=== PATIENT | male | born 1955 | race Caucasian/White ===

== ENCOUNTER 2018-11-24 22:49 | Emergency (ER) | payer MEDICARE ==
[2018-11-24 23:20] LABS: ABSOLUTE EOSINOPHILS # (AUTO) 0.3 10^3/uL (0.0-0.6); ABSOLUTE LYMPHOCYTES (AUTO) 1.6 10^3/uL (0.5-4.7); ABSOLUTE MONOCYTES (AUTO) 0.2 10^3/uL (0.1-1.4); ABSOLUTE NEUT (AUTO) 4.5 10^3/uL (1.7-8.2); BASOPHILS % (AUTO) 0.7 % (0-2); EOSINOPHILS % (AUTO) 4.4 % (0-6); HEMATOCRIT 41.2 % (37.9-51.0); HEMOGLOBIN 13.5 g/dL (13.5-17.0); LYMPHOCYTES % (AUTO) 23.9 % (13-45); MEAN CORPUSCULAR HGB CONC 32.8 g/dL (32.0-36.0); MEAN CORPUSCULAR VOLUME 88 fl (80-97); MONOCYTES % (AUTO) 3.6 % (3-13); PLATELET COUNT 140 10^3/uL (150-450); RED BLOOD COUNT 4.66 10^6/uL (4.35-5.55); RED CELL DISTRIBUTION WIDTH 13.8 % (11.5-14.0); SEGMENTED NEUTROPHILS % (AUTO) 67.4 % (42-78); TOTAL CELLS COUNTED % (AUTO) 100 %; WHITE BLOOD COUNT 6.7 10^3/uL (4.0-10.5)
[2018-11-24 23:32] LABS: ALANINE AMINOTRANSFERASE 19 U/L (21-72); ALBUMIN 4.1 g/dL (3.5-5.0); ALKALINE PHOSPHATASE 51 U/L (38-126); ANION GAP 9 (5-19); ASPARTATE AMINO TRANSFERASE 28 U/L (17-59); BILIRUBIN,DIRECT 0.2 mg/dL (0.0-0.4); BILIRUBIN,TOTAL 0.2 mg/dL (0.2-1.3); BLOOD UREA NITROGEN 23 mg/dL (7-20); CALCIUM 8.8 mg/dL (8.4-10.2); CARBON DIOXIDE 30 mmol/L (22-30); CHLORIDE 100 mmol/L (98-107); GLUCOSE 146 mg/dL (75-110); POTASSIUM 4.7 mmol/L (3.6-5.0); SALICYLATE 4.3 mg/dL (2.0-20.0); SODIUM 138.7 mmol/L (137-145); TOTAL PROTEIN 6.6 g/dL (6.3-8.2)
[2018-11-24 23:39] LABS: ACETAMINOPHEN < 10 ug/mL (10-30); ALCOHOL < 10 mg/dL (NONE DETECTED)
[2018-11-25 04:50] LABS: APPEARANCE,URINE CLEAR; BILIRUBIN,URINE NEGATIVE (NEGATIVE); COLOR,URINE YELLOW; GLUCOSE, URINE 50 mg/dL (NEGATIVE); KETONES,URINE NEGATIVE (NEGATIVE); LEUKOCYTE ESTERASE,URINE NEGATIVE (NEGATIVE); NITRITE,URINE NEGATIVE (NEGATIVE); PROTEIN,URINE NEGATIVE (NEGATIVE); UROBILINOGEN,URINE NEGATIVE mg/dL (<2.0)
[2018-11-25 05:06] LABS: URINE AMPHETAMINES SCREEN NEGATIVE; URINE BARBITURATES SCREEN NEGATIVE; URINE BENZODIAZEPINES SCREEN UNCONFIRMED POSITIVE; URINE COCAINE SCREEN UNCONFIRMED POSITIVE; URINE METHADONE SCREEN UNCONFIRMED POSITIVE; URINE PHENCYCLIDINE SCREEN NEGATIVE
[2018-11-25 05:14] LABS: URINE MARIJUANA (THC) SCREEN UNCONFIRMED POSITIVE
--- NOTE | 2018-11-25 06:44 | ER Document Report ---
ED General - General TRAVEL OUTSIDE OF THE [place] IN LAST 30 DAYS: No <BAIRON ANTONY - Last Filed: 11/25/18 06:45> <AILYN WYNN - Last Filed: 11/25/18 10:38> <JUAN BELLE - Last Filed: 11/25/18 10:48> - General Chief Complaint: Overdose Stated Complaint: POSSIBLE OVERDOSE Time Seen by Provider: 11/24/18 23:05 Primary Care Provider: [facility] [Outside] - Follow up in 3-5 days [facility] [Outside] - Follow up as needed PEACE NICHOLSON MD [Primary Care Provider] - Follow up as needed Notes: Patient is a 63-year-old male who presents with complaint of overdose. He was found unresponsive in his house. Paramedics gave Narcan he did wake up. Patient has a history of substance abuse. Patient's and family told par amedics that she is concerned that he is very depressed and potentially suicidal. Patient says he does not use drugs every day but goes in spurts where he will have a relapse and will use drugs for a few days. He admits to using heroin. He also admits to using oxycodone. Denies recent fevers or infections. He says that he does have some depression but denies being suicidal denies that he is try to hurt himself. No other complaints at this time. (BAIRON ANTONY) - Related Data Allergies/Adverse Reactions: duloxetine HCl [From Cymbalta] Adverse Reaction (Mild, Verified 07/18/13 10:47) "DOESNT LIKE THE WAY IT MAKES HIM FEEL" gabapentin [Gabapentin] Adverse Reaction (Mild, Verified 07/18/13 10:47) "DOESNT LIKE THE WAY IT MAKES HIM FEEL" pregabalin [Pregabalin] Adverse Reaction (Mild, Verified 07/18/13 10:47) "DOESNT LIKE THE WAY IT MAKES HIM FEEL" Past Medical History - Social History Smoking Status: Current Every Day Smoker Frequency of alcohol use: Occasional Drug Abuse: Heroin, Marijuana, Prescription drugs Family History: None Patient has suicidal ideation: No Patient has homicidal ideation: No - Past Medical History Cardiac Medical History: Denies: Hx Coronary Artery Disease, Hx Heart Attack, Hx Hypertension Pulmonary Medical History: Denies: Hx Asthma, Hx Bronchitis, Hx COPD, Hx Pneumonia Neurological Medical History: Denies: Hx Cerebrovascular Accident, Hx Seizures Renal/ Medical History: Denies: Hx Peritoneal Dialysis Musculoskeletal Medical History: Reports Hx Arthritis - generalized Psychiatric Medical History: Reports: Hx Anxiety, Hx Depression Past Surgical History: Reports: Hx Orthopedic Surgery - spinal fusion. Denies: Hx Pacemaker - Immunizations Hx Diphtheria, Pertussis, Tetanus Vaccination: Yes - 2010 <BAIRON ANTONY - Last Filed: 11/25/18 06:45> Review of Systems <BAIRON ANTONY - Last Filed: 11/25/18 06:45> - Review of Systems Notes: My Normal Review Basic REVIEW OF SYSTEMS: CONSTITUTIONAL : Denies fever, chills, or sweats. Denies recent illness. CARDIOVASCULAR: Denies chest pain. RESPIRATORY: Denies cough, cold, or chest congestion. Denies shortness of breath, difficulty breathing, or wheezing. GASTROINTESTINAL: Denies abdominal pain. Denies nausea, vomiting, or diarrhea. MUSCULOSKELETAL: Denies neck or back pain or joint pain or swelling. SKIN: Denies rash or skin lesions. NEUROLOGICAL: Found unresponsive. Denies headache. Denies weakness or paralysis or loss of use of either side. Denies problems with gait or speech. Denies sensory or motor loss. PSYCHIATRIC: Depression ALL OTHER SYSTEMS REVIEWED AND NEGATIVE. (BAIRON ANTONY) Physical Exam <BAIRON ANTONY - Last Filed: 11/25/18 06:45> - Vital signs Vitals: Resp BP Pulse Ox 10 L 104/66 96 11/24/18 23:34 11/24/18 23:34 11/24/18 23:34 - Notes Notes: General Appearance: Well nourished, alert, cooperative, no acute distress, no obvious discomfort. Vitals: reviewed, See vital signs table. Head: no swelling or tenderness to the head Eyes: PERRL, EOMI, Conjuctiva clear Mouth: No decreasd moisture Lungs: No wheezing, No rales, No rhonci, No accessory muscle use, good air exchange bilaterally. Heart: Normal rate, Regular rythm, No murmur, no rub Abdomen: Normal BS, soft, No rigidity, No abdominal tenderness, No guarding, no rebound, no abdominal masses, no organomegaly Extremities: strength 5/5 in all extremities, good pulses in all extremities, some track noriega on upper extremities. Skin: warm, dry, appropriate color, no rash Neuro: speech clear, oriented x 3, normal affect, responds appropriately to questions. He was all extremities on his own. Symmetric facial movement. No neuro deficits on exam. (BAIRON ANTONY) Course - Laboratory Result Diagrams: 11/24/18 23:07 11/24/18 23:07 <BAIRON ANTONY - Last Filed: 11/25/18 06:45> - Laboratory Result Diagrams: 11/24/18 23:07 11/24/18 23:07 <AILYN WYNN - Last Filed: 11/25/18 10:38> - Laboratory Result Diagrams: 11/24/18 23:07 11/24/18 23:07 <JUAN BELLE - Last Filed: 11/25/18 10:48> - Re-evaluation Re-evalutation: 11/25/18 06:44 Patient's drug screen came back positive for multiple substances. Feel the patient has medically stable for psychiatric evaluation. His did mention paramedics that she is concerned about his depression and potential that he could be suicidal. Patient seems very straightforward and says that he is not suicidal but does admit to having some depression. He said he is willing to speak with psychiatry and mental health this morning about his substance abuse as well as depression. Patient has no further concerns at this time and has done well and has been vitally stable. Dictation of this chart was performed using voice recognition software; therefore, there may be some unintended grammatical errors. (BAIRON ANTONY) - Vital Signs Vital signs: Temp Pulse Resp BP Pulse Ox 11 L 116/72 99 11/25/18 09:01 11/25/18 09:01 11/25/18 09:01 - Laboratory Laboratory results interpreted by ms: 11/24/18 11/24/18 11/25/18 23:07 23:07 04:25 Plt Count 140 L BUN 23 H Glucose 146 H ALT 19 L Urine Glucose (UA) 50 H Acetaminophen < 10 L Discharge <BAIRON ANTONY - Last Filed: 11/25/18 06:45> <AILYN WYNN - Last Filed: 11/25/18 10:38> <JUAN BELLE - Last Filed: 11/25/18 10:48> - Discharge Clinical Impression: Substance abuse Depression Qualifiers: Depression Type: unspecified Qualified Code(s): F32.9 - Major depressive disorder, single episode, unspecified Condition: Stable Disposition: HOME, SELF-CARE Additional Instructions: You have been evaluated both medical and behavioral health teams and been deemed appropriate for discharge. You are highly encouraged to follow-up with substance abuse treatment. You have been been provided resources for both detox and follow-up with substance abuse treatment to include detox facilities, residential, and outpatient providers this includes mobile crisis contact information. You are also encouraged to engage in therapeutic services to address your complex bereavement from your son's . COCAINE ABUSE: Cocaine causes many dangerous medical problems. Problems can occur even with "usual" amounts. Cocaine affects judgement, creating a sense of invulnerability. Cocaine users often make bad decisions that seem "great" at the time. Most cocaine users eventually will be hurt by bad job performance, da aidee personal relations, crime, and unsafe sexual practices. Toxic effects of cocaine can include seizures, hallucinations, delusions, high blood pressure, heart damage, or sudden . There's always the risk of a "bad batch." But heart attacks, brain hemorrhages, or cardiac arrest can occ ur unpredictably even with "normal" use. Injection of cocaine is risky for abscesses, endocarditis (heart infection), pneumonia, and AIDS. Withdrawal from cocaine often causes anxiety and drug cravings. Some users become paranoid and psychotic. Many treatment programs are available, but you must make the decision to quit. Medication can be prescribed to control the symptoms of cocaine toxicity (beta blockers or benzodiazepines). Withdrawal symptoms may require tranquilizers. NARCOTIC / OPIOD ABUSE: Narcotics and opiods are pain-relieving drugs that are often abused. They are addicting. Narcotics cause euphoria, but it often takes increasing amounts to "feel good" and avoid withdrawal symptoms. Overdose of narcotics causes small pupils, coma, and decreased breathing. It's a common cause of . Purity of street narcotics is unpredictable. Injection of narcotics is risky for abscesses, endocarditis (heart infection), pneumonia, and AIDS. Withdrawal from narcotics causes goose bumps, watery mouth, sweating, nasal congestion, muscle aches, abdominal cramps, vomiting, and diarrhea. There's often restlessness and confusion. Treatment programs are available, but you must make the decision to quit. Medication (such as clonidine) can be prescribed to control the symptoms of withdrawal. OVERDOSE / INGESTION: You have taken more medication than you should have. After your evaluation and care, it is felt that your overdose is not likely to be harmful or of any significant consequences to you and you are being discharged. In the future, you should be careful not to take more medications than what is prescribed for you. Although your overdose does not seem to be of any danger to you at this time, if you develop any unusual or unexpected symptoms after your discharge, you should return to the Emergency Department immediately for re-evaluation. INSTRUCTIONS FOR HOME CARE FOLLOWING DRUG OVERDOSAGE: The doctor feels it's safe for you to go home. You will need to be observed. If charcoal and a laxative was given to you, expect some loose black stools soon. Take no medications unless approved by a physician, including alcohol. If drowsy, lie on your stomach or side for sleeping to avoid aspiration if vomiting occurs. Take only liquids by mouth until there is no more nausea. FOR THE OBSERVER: Observe the patient for the next 24 hours and call or go to the hospital if any of the following are noted: prolonged or repeated vomiting, difficulty in arousing, convulsions (seizures or fits), fever, persistent cough, breathing that is too slow or too rapid, or confused or bizarre behavior. If a counselling visit has been arranged, make sure the patient attends. Call the physician or poison control if you have questions. FOLLOW-UP CARE: If you have been referred to a physician for follow-up care, call the physicians office for an appointment as you were instructed or within the next two days. If you experience worsening or a significant change in your symptoms, notify the physician immediately or return to the Emergency Department at any time for re-evaluation. Referrals: PEACE NICHOLSON MD [Primary Care Provider] - Follow up as needed [facility] [Outside] - Follow up as needed [facility] [Outside] - Follow up in 3-5 days
[2018-11-25 09:24] VITALS: BP 116/72
--- NOTE | 2018-11-25 09:41 | ER Document Report ---
Doctor's Note Notes: 11/25/18 09:39 Rounds: Chart reviewed and patient reviewed. Patient with polysubstance abuse. Has been using heroin, oxycodone, and marijuana and cocaine. Had to receive Narcan to awaken him at the scene last evening. Patient says he is not suicidal. Says he does not use drugs regularly, just happened to be around some yesterday. No other significant past history provided. Vital signs are all normal. Labs were positive for benzos, cocaine, marijuana, methamphetamine, and opioids. Patient appears to be medically stable for transfer or discharge. Jacqueline Baum MD
--- NOTE | 2018-11-25 11:27 | PSYCHOLOGICAL NOTE ---
Psych Note - Psych Note Date seen by psych provider: 11/25/18 Time seen by psych provider: 09:10 Psych Note: Reason for consult: Substance abuse Consent permissions: Patient's Patient is a 63-year-old male who presents with complaint of overdose. He was found unresponsive in his house. Paramedics gave Narcan he did wake up. Patient states that he excellently overdosed because he "used too many drugs." He adamantly denies intentional overdose. He identifies using drugs as a way to escape and he enjoys the feeling of being high. He does identify wanting sobriety however has declined assistance stating that "I can do it on my own." Clinician provided psychoeducation in substance abuse and achieving successful sobriety. Patient also openly engaged in his thoughts about his son's (patient and clinician discussed patient's son during previous visit in 2016), with ongoing depression. Clinician discussed importance of therapeutic services to address his symptoms of his complex bereavement. Chart Review conducted: Patient was seen by this clinician and behavioral health team in April of 2016 for substance abuse and depression in connection to his son's . Clinician spoke with [facility]ed[facility], Cornelio Hernandez. He reports that the patient's stated the patient makes suicidal comments frequently and that he hopes he will . Clinician attempted to contact patient's ; unsuccessful. Patient is alert and oriented to person, place, time and circumstance. Patient adamantly denies suicidal and homicidal ideation however reports indicate frequent passive suicidal ideation comments. Mood is overall euthymic however has flat affect. Patient is currently experiencing withdrawal symptoms which includes nausea and vomiting. Patient identifies using drugs as a way to escape and he enjoys getting high. Delusions are absent behaviors congruent with an intact reality based presentation i.e. organized linear thought process. Eye contact was well-maintained. Conversational speech is within normal rate, tone and prosody. Intellectual abilities appear to be within the average range. Attention and concentration are currently good. Insight, judgment, impulse control are historically poor due to polysubstance abuse. Polysubstance abuse Complex bereavement No medication recommendations at this time Impression/Plan: Patient is cleared from acute psychiatric services. There is a report that the patient makes frequent suicidal comments however patient adamantly denies suicidal homicidal ideation. Patient admits to accidental overdosed using illegal substances. Patient has a long history of substance abuse and openly discusses that he uses drugs as a way to escape and that he enjoys the feeling of being high. Patient's son approximately 6 years ago from a drug overdose. Patient engaged appropriately in this discussion and demonstrates complex bereavement as he attempted to perform CPR on his son and he personally continues to use even after his son's . Patient has declined assistance in detox and sobriety services. Clinician conducted psychoeducation on substance abuse and achieving sobriety successfully in addition to the importance of therapeutic services to address his symptoms of his complex bereavement. These resources have been provided if the patient changes his mind, this includes detox facilities, [facility] addiction [facility] pamphlet and contact information, outpatient mental health and substance abuse providers for the local area and mobile crisis contact information. Dr. Rajput was consulted on this patient; attending physician is in agreement of recommendations and disposition.
--- NOTE | 2018-11-25 18:31 | EKG REPORT ---
SEVERITY:- ABNORMAL ECG - SINUS RHYTHM PROBABLE ANTEROSEPTAL INFARCT, AGE INDETERM : Confirmed by: Jenny Sherman 25-Nov-2018 18:30:57
== END 2018-11-25 11:00 | disposition home or self-care (01) ==
LOC: ER 22:49
DX: F19.10 Other psychoactive substance abuse, uncomplicated (principal); F32.9 Major depressive disorder, single episode, unspecified; F17.200 Nicotine dependence, unspecified, uncomplicated
CPT/HCPCS: 36415; 80053; 80307; 81001; 85025; 93005; 93010; 99285

== ENCOUNTER 2018-11-25 16:42 | Emergency (ER) | payer MEDICARE ==
--- NOTE | 2018-11-25 17:39 | ER Document Report ---
ED Psych Disorder / Suicide - General Chief Complaint: Overdose Stated Complaint: POSSIBLE OVERDOSE Time Seen by Provider: 11/25/18 17:19 Primary Care Provider: PEACE NICHOLSON MD [Primary Care Provider] - Follow up as needed Notes: Patient brought in by EMS for apparently having overdosed on narcotic/heroin again, requiring Narcan to awaken him from sleep. He was just here last night after having received Narcan to awaken him from sleep and was observed here during the day and just discharged home about 4 hours ago. At that time, he was positive for methamphetamine, cocaine, heroin, and I think marijuana and something else. Patient initially says he did not know what happened but then acknowledges that he was using heroin again. Patient has depression, but had denied feeling suicidal when evaluated on his earlier visit today. Patient's son from an overdose as the patient was performing CPR on him. This happened 5 or 6 years ago. TRAVEL OUTSIDE OF THE [place] IN LAST 30 DAYS: No - Related Data Allergies/Adverse Reactions: duloxetine HCl [From Cymbalta] Adverse Reaction (Mild, Verified 07/18/13 10:47) "DOESNT LIKE THE WAY IT MAKES HIM FEEL" gabapentin [Gabapentin] Adverse Reaction (Mild, Verified 07/18/13 10:47) "DOESNT LIKE THE WAY IT MAKES HIM FEEL" pregabalin [Pregabalin] Adverse Reaction (Mild, Verified 07/18/13 10:47) "DOESNT LIKE THE WAY IT MAKES HIM FEEL" Past Medical History - Social History Smoking Status: Unknown if Ever Smoked Family History: None, Reviewed & Not Pertinent Musculoskeletal Medical History: Reports Hx Arthritis - generalized Psychiatric Medical History: Reports: Hx Anxiety, Hx Depression Past Surgical History: Reports: Hx Orthopedic Surgery - spinal fusion - Immunizations Hx Diphtheria, Pertussis, Tetanus Vaccination: Yes - 2010 Review of Systems - Review of Systems Notes: CONSTITUTIONAL : Denies fever. CARDIOVASCULAR: Denies chest pain. RESPIRATORY: Denies cough, chest congestion, or shortness of breath. GASTROINTESTINAL: Denies abdominal pain or nausea, vomiting, or diarrhea. GENITOURINARY: Denies difficulty or painful urinating, urinary frequency, blood in urine. Physical Exam - Vital signs Vitals: Resp 20 11/25/18 16:51 PHYSICAL EXAMINATION: GENERAL: Well-appearing, no acute distress. HEAD: Atraumatic, normocephalic. NECK: Normal range of motion, supple. LUNGS: Breath sounds clear and equal bilaterally. HEART: Regular rate and rhythm without murmurs heard. ABDOMEN: Soft, nontender. No guarding or rebound or masses felt. Course - Re-evaluation Re-evalutation: 11/25/18 17:43 IVC paperwork has been completed. Patient will be spending the night here tonight and reassess by mental health in the morning. - Vital Signs Vital signs: Temp Pulse Resp BP Pulse Ox 98.6 F 98 16 116/79 94 11/26/18 07:00 11/26/18 07:00 11/26/18 04:00 11/26/18 07:00 11/26/18 04:00 Discharge - Discharge Clinical Impression: Depression, Substance abuse, Suicidal ideation Condition: Stable Disposition: PSYCH HOSP/UNIT Referrals: PEACE NICHOLSON MD [Primary Care Provider] - Follow up as needed
[2018-11-26 09:44] VITALS: BP 116/79
--- NOTE | 2018-11-26 19:17 | PSYCHOLOGICAL NOTE ---
Psych Note - Psych Note Date seen by psych provider: 11/26/18 Psych Note: Presenting Problem: IVC, 2 OD in one day with need for medical attention, Bereavement related to son who 6 years ago, concern for SI. Today he stated he may need help, became tearful when talking about his son and did not deny either OD. He did not say one way or the other if it was intentional or not. Diagnosis: OD Polysubstance abuse Opioids/Methadone Anxiolytics Cocaine Cannabis Complex Bereavement Impression/Plan: Started placement efforts prior to patient being seen given 2 OD in one day which required medical attention. Patient accepted to [facility]. Will move forward with that placement. Consulted with Dr. Rajput regarding the management and care of patient. ED Physician in agreement with recommendations.
== END 2018-11-26 10:10 ==
LOC: ER 16:42
DX: R45.851 Suicidal ideations (principal); F32.9 Major depressive disorder, single episode, unspecified; F19.10 Other psychoactive substance abuse, uncomplicated
CPT/HCPCS: 99284

== ENCOUNTER → 2019-03-17 | Outpatient (CLI) | payer MEDICARE, OTHER ==
--- NOTE | 2019-03-17 14:33 | RADIOLOGY REPORT (SQ) ---
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 NUMBER OF VIEWS: Four views TECHNIQUE: AP views obtained. Lateral and swimmer's lateral views were obtained. LIMITATIONS: None. FINDINGS: MINERALIZATION: Normal. ALIGNMENT: Anatomic. VERTEBRAE: Vertebral bodies of normal height. DISCS: There is mild disc narrowing at C5-6 and C6-7 with small marginal osteophytes. HARDWARE: Anterior plate from C3-C5 with screws into the vertebral bodies. Disc implants. SOFT TISSUES: No masses or calcifications. Lung apices clear. OTHER: No other significant finding. IMPRESSION: Prior ACDF. Mild degenerative disc disease and spondylosis. TECHNICAL DOCUMENTATION: JOB ID: [id number] [employer]- All Rights Reserved Reading location - IP/workstation name: [email or web address]
== END ==
LOC: OD 12:43
PROVIDERS: ATTEND Physician Assistant
DX: M47.12 Other spondylosis with myelopathy, cervical region (principal); M50.023 Cervical disc disorder at C6-C7 level with myelopathy
CPT/HCPCS: 72040

== ENCOUNTER 2019-07-17 11:47 | Emergency (ER) | payer MEDICARE, OTHER ==
--- NOTE | 2019-07-17 12:37 | ER Document Report ---
HPI - HPI Patient complains to provider of: Ear pain Time Seen by Provider: 07/17/19 12:11 Onset: Other - 3 months Onset/Duration: Worse Quality of pain: Achy Pain Level: 3 Context: Patient reports bilateral ear pain for the past 2 to 3 months that worsened recently. Patient reports decreased hearing to the right ear. Patient does report drainage to the ears. No fever. Associated Symptoms: Earache. denies: Nonproductive cough, Productive cough, Fever Exacerbated by: Denies Relieved by: Denies Similar symptoms previously: No Recently seen / treated by doctor: No - ROS ROS below otherwise negative: Yes Systems Reviewed and Negative: Yes All other systems reviewed and negative - CONSTITUTIONAL Constitutional: DENIES: Fever, Chills - EENT EENT: REPORTS: Ear Pain. DENIES: Congestion - RESPIRATORY Respiratory: DENIES: Coughing - GASTROINTESTINAL Gastrointestinal: DENIES: Patient vomiting - DERM Skin Color: Normal Skin Problems: None Past Medical History - General Information source: Patient - Social History Smoking Status: Current Every Day Smoker Frequency of alcohol use: None Drug Abuse: None Occupation: None Family History: None, Reviewed & Not Pertinent Patient has suicidal ideation: No Patient has homicidal ideation: No - Past Medical History Cardiac Medical History: Reports: Hx Hypertension Neurological Medical History: Denies: Hx Cerebrovascular Accident, Hx Seizures Renal/ Medical History: Denies: Hx Peritoneal Dialysis Musculoskeletal Medical History: Reports Hx Arthritis - generalized Psychiatric Medical History: Reports: Hx Anxiety, Hx Depression Past Surgical History: Reports: Hx Orthopedic Surgery - spinal fusion - Immunizations Hx Diphtheria, Pertussis, Tetanus Vaccination: Yes - 2010 Vertical Provider Document - CONSTITUTIONAL Agree With Documented VS: Yes Exam Limitations: No Limitations General Appearance: WD/WN, No Apparent Distress - INFECTION CONTROL TRAVEL OUTSIDE OF THE [place] IN LAST 30 DAYS: No - HEENT HEENT: Atraumatic, Normocephalic Notes: Exudate and drainage to bilateral ear canals, left worse than right, no mastoid tenderness or swelling. Patient does have tenderness with movement of helix - NECK Neck: Normal Inspection, Supple. negative: Lymphadenopathy-Left, Lymphadenopat hy-Right - RESPIRATORY Respiratory: No Respiratory Distress - CARDIOVASCULAR Cardiovascular: Regular Rate - MUSCULOSKELETAL/EXTREMETIES Musculoskeletal/Extremeties: MAEW, FROM - NEURO Level of Consciousness: Awake, Alert, Appropriate Motor/Sensory: No Motor Deficit - DERM Integumentary: Warm, Dry Course - Vital Signs Vital signs: Temp Pulse Resp BP Pulse Ox 98.2 F 104 H 18 151/88 H 100 07/17/19 11:52 07/17/19 11:52 07/17/19 11:52 07/17/19 11:52 07/17/19 11:52 Discharge - Discharge Clinical Impression: Otalgia Qualifiers: Laterality: bilateral Qualified Code(s): H92.03 - Otalgia, bilateral Otitis externa Qualifiers: Otitis externa type: unspecified type Chronicity: unspecified Laterality: bilateral Qualified Code(s): H60.93 - Unspecified otitis externa, bilateral Condition: Stable Disposition: HOME, SELF-CARE Instructions: Otitis Externa ([facility]), Use of Ear Drops ([facility]) Additional Instructions: Return immediately for any new or worsening symptoms Followup with your primary care provider, call tomorrow to make a followup appointment Follow-up with the research neuropsychologist for a recheck Prescriptions: Ciprofloxacin HCl/Dexameth [Ciprodex Otic Suspension 7.5 Ml Drp Bottle] 4 drop BTH_EAR BID #1 bottle Referrals: PEACE NICHOLSON MD [Primary Care Provider] - Follow up as needed [facility] [Provider Group] - Follow up as needed
[2019-07-17 13:15] VITALS: BP 125/76
== END 2019-07-17 13:13 | disposition home or self-care (01) ==
LOC: ER 11:47
DX: H60.93 Unspecified otitis externa, bilateral (principal); H92.03 Otalgia, bilateral; F17.200 Nicotine dependence, unspecified, uncomplicated; I10 Essential (primary) hypertension
CPT/HCPCS: 99282

== ENCOUNTER 2019-10-31 17:14 | Emergency (ER) | payer MEDICARE, OTHER ==
--- NOTE | 2019-10-31 17:35 | ER Document Report ---
ED General - General Chief Complaint: Possible Overdose Stated Complaint: POSSIBLE OVERDOSE Time Seen by Provider: 10/31/19 17:20 Primary Care Provider: PEACE NICHOLSON MD [Primary Care Provider] - Follow up as needed Notes: Presents with unintentional heroin overdose. Snorted heroin more than usual does not use it that often he does not shoot it. Agonal, given 4 mg Narcan by family and was coming around when EMS got there. For that an hour ago. He now feels well. No shortness of breath bleeding or chest pressure. No SI no HI TRAVEL OUTSIDE OF THE [place] IN LAST 30 DAYS: No - Related Data Allergies/Adverse Reactions: duloxetine HCl [From Cymbalta] Adverse Reaction (Mild, Verified 07/18/13 10:47) "DOESNT LIKE THE WAY IT MAKES HIM FEEL" gabapentin [Gabapentin] Adverse Reaction (Mild, Verified 07/18/13 10:47) "DOESNT LIKE THE WAY IT MAKES HIM FEEL" pregabalin [Pregabalin] Adverse Reaction (Mild, Verified 07/18/13 10:47) "DOESNT LIKE THE WAY IT MAKES HIM FEEL" Past Medical History - General Information source: Patient - Social History Smoking Status: Current Every Day Smoker Family History: None, Reviewed & Not Pertinent - Past Medical History Cardiac Medical History: Reports: Hx Hypertension Neurological Medical History: Denies: Hx Cerebrovascular Accident, Hx Seizures Renal/ Medical History: Denies: Hx Peritoneal Dialysis Musculoskeletal Medical History: Reports Hx Arthritis - generalized Psychiatric Medical History: Reports: Hx Anxiety, Hx Depression Past Surgical History: Reports: Hx Orthopedic Surgery - spinal fusion - Immunizations Hx Diphtheria, Pertussis, Tetanus Vaccination: Yes - 2010 Review of Systems - Review of Systems Notes: REVIEW OF SYSTEMS GEN: Denies fever, chills, weight loss ENT: Denies sore throat, nasal discharge, ear pain EYES: Denies blurry vision, eye pain, discharge CV: Denies chest pain, palpitations, edema RESP: Denies cough, shortness of breath, wheezing GI: Denies abdominal pain, nausea, vomiting, diarrhea MSK: Denies joint pain/swelling, edema, SKIN: Denies rash, skin lesions LYMPH: Denies swollen glands/lymph nodes NEURO: Denies headache, focal weakness or numbness, dizziness PSYCH: Denies depression, suicidal or homicidal ideation PHYSICAL EXAMINATION General: No acute distress, well-nourished Head: Atraumatic, normocephalic ENT: Mouth normal, oropharynx moist, no exudates or tonsillar enlargement Eyes: Conjunctiva normal, pupils equal, lids normal Neck: No JVD, supple, no guarding CVS: Normal rate, regular rhythm, no murmurs Resp: No resp distress, equal and normal breath sounds bilaterally GI: Nondistended, soft, no tenderness to palpation, no rebound or guarding Ext: No deformities, no edema, normal range of motion in upper and lower ext Back: No CVA or midline TTP Skin: No rash, warm Lymphatic: No lymphadeopathy noted Neuro: Awake, alert. Face symmetric. GCS 15. Course - Re-evaluation Re-evalutation: 10/31/19 17:34 Uncomplicated unintentional heroin overdose Will observe for 1 hour post Narcan No SI no HI Narcan is been given to him by EMS already Does not want to stop using does not think he has a problem Outpatient referrals given I have discussed with the patient there likely diagnosis, aftercare plan, follow-up plans and my usual and customary return precautions. They verbalized understanding of this. Discharge - Discharge Clinical Impression: Accidental heroin overdose Qualifiers: Encounter type: initial encounter Qualified Code(s): T40.1X1A - Poisoning by heroin, accidental (unintentional), initial encounter Condition: Good Disposition: HOME, SELF-CARE Instructions: Overdose ([facility]) Referrals: PEACE NICHOLSON MD [Primary Care Provider] - Follow up as needed
[2019-10-31 19:10] VITALS: BP 112/78
== END 2019-10-31 19:16 | disposition home or self-care (01) ==
LOC: ER 17:14
DX: T40.1X1A Poisoning by heroin, accidental (unintentional), initial encounter (principal); F17.200 Nicotine dependence, unspecified, uncomplicated; I10 Essential (primary) hypertension
CPT/HCPCS: 99284

== ENCOUNTER → 2020-03-16 | Outpatient (CLI) | payer MEDICARE, OTHER ==
[2020-03-16 11:59] VITALS: BP 105/59
--- NOTE | 2020-03-16 11:59 | ER RDC ASSESSMENT REPORT ---
Intake - In the Last 14 days Have you traveled outside [place]?: No Have you been in close contact with someone CONFIRMED: Yes Worked in Healthcare?: No - Symptoms Subjective Fever([place] feverish): Yes Chills: Yes Muscule Aches: Yes Runny Nose: Yes Sore Throat: No Cough (New or worsening chronic cough): No Shortness of breath: No Nausea or Vomiting: No Headache: Yes Abdominal Pain: No Diarrhea(3 or more loose stools in last 24 hours): No - Do you have any of the following Cystic Fibrosis: No Diabetes: No High Blood Pressure: No Cardiovascular Disease: No Chronic Kidney Disease: No Chronic Liver Disease: No Chronic blood disorder like Sickle Cell Disease: No Weak immune system due to disease or medication: No Neurologic condition that limits movement: No Developmental delay - Moderate to Severe: No Recent (within past 2 weeks) or current : No Morbid Obesity (>100 pounds over ideal weight): No Obesity Comment: Height 5 feet 11 inches weight 185 pounds - Objective Temperature: 98.4 F Pulse Rate: 82 Respiratory Rate: 16 Blood Pressure: 105/59 O2 Sat by Pulse Oximetry: 95 Objective: Given above, testing performed: If Testing Performed: Test Specimen Type Sent to General - General Information source: Patient Notes: Patient here at [facility] for Covid testing patient reports has been around his best friend who is now hospitalized since Thursday with Covid. Patient started to have symptoms over the weekend worsening with fever temp 99.6. Chills muscle aches runny nose and a headache. Patient's PCP is Dr. Annika Barros and will plan to follow-up with him later today. - Related Data Allergies/Adverse Reactions: duloxetine HCl [From Cymbalta] Adverse Reaction (Mild, Verified 07/18/13 10:47) "DOESNT LIKE THE WAY IT MAKES HIM FEEL" gabapentin [Gabapentin] Adverse Reaction (Mild, Verified 07/18/13 10:47) "DOESNT LIKE THE WAY IT MAKES HIM FEEL" pregabalin [Pregabalin] Adverse Reaction (Mild, Verified 07/18/13 10:47) "DOESNT LIKE THE WAY IT MAKES HIM FEEL" Past Medical History - General Information source: Patient - Social History Smoking Status: Current Every Day Smoker Cigarette use (# per day): Yes - Smokes a pack a day Smoking Education Provided: Yes - Quit smoking Family History: None, Reviewed & Not Pertinent - Past Medical History Cardiac Medical History: Reports: Hx Hypertension Denies: Hx Coronary Artery Disease, Hx Heart Attack Pulmonary Medical History: Denies: Hx Asthma, Hx Bronchitis, Hx COPD, Hx Pneumonia Neurological Medical History: Denies: Hx Cerebrovascular Accident, Hx Seizures Renal/ Medical History: Denies: Hx Peritoneal Dialysis Musculoskeletal Medical History: Reports Hx Arthritis - generalized Psychiatric Medical History: Reports: Hx Anxiety, Hx Depression Past Surgical History: Reports: Hx Orthopedic Surgery - spinal fusion. Denies: Hx Pacemaker Physical Exam - General General appearance: Appears well, Alert In distress: None Notes: PHYSICAL EXAMINATION: GENERAL: Well-appearing and in no acute distress. HEAD: Atraumatic, normocephalic. EYES: sclera anicteric, conjunctiva are normal. ENT: nares patent. Moist mucous membranes. NECK: Normal range of motion, supple without lymphadenopathy LUNGS: CTAB and equal. No wheezes rales or rhonchi. Resp even and unlabored. Lung sounds clear. HEART: Regular rate and rhythm without murmurs ABDOMEN: Soft, nontender, normal bowel sounds, no guarding. EXTREMITIES: Normal range of motion, no pitting edema. No cyanosis. NEUROLOGICAL: Cranial nerves grossly intact. Normal speech. Normal gait. PSYCH: Normal mood, normal affect. SKIN: Warm, Dry, normal turgor, no rashes or lesions noted Diagnostic Results Radiology Results: Patient informed of negative rapid strep and negative rapid flu results. Pending strep culture pending Covid testing results. Patient provided instructions regarding Covid to include: As a person under investigation for Covid 19, the [place] department of Health and Human Services, division of public health advises you to adhere to the following guidance until your test results are reported to you. If your test result is positive, you will receive additional information from your provider and your local health department at that time. Remain at home until you are cleared by the health provider or public health authorities. Keep a log of visitors to your home, notify any visitors to your home of your isolation status. If you plan to move to a new address or leave the [facility], notify the local health department in your County. Call your doctor or seek care if you have an urgent medical need. Before seeking medical care, call ahead to get instructions from the provider before arriving at the medical office clinic or hospital. Notify them that you are being tested for the virus that causes Covid 19 so that arrangements can be made, as necessary, to prevent transmission to others in the healthcare setting. Next, notify the local health department in your county. If a medical emergency arises and you need to call 911, inform the first responders that you are being tested for the virus that causes Covid 19. Next, notify the local health department in your county. Patient Education/Counseling Counseling/Education: Patient presents with upper respiratory symptoms worrisome for possible Covid 19. Patient does not have emergency worring symptoms such as difficulty breathing, shortness of breath, chest pain, pressure, confusion or cyanosis. Patient appears suitable for discharge. Patient instructed to follow-up with Anju Barros today. To ED for persistent or worsening symptoms. Patient's vital signs are stable and patient is nontoxic in appearance. Good return precautions have been discussed with patient, patient verbalized understanding and is agreeable with discharge plan of care at this time. RDC Discharge - Discharge Condition: Stable Disposition: Home; Selfcare
[2020-03-16 13:27] LABS: A TYPE INFLUENZA AG NEGATIVE (NEGATIVE); B INFLUENZA AG NEGATIVE (NEGATIVE)
== END ==
LOC: RDC 10:49
PROVIDERS: ATTEND Nurse Practitioner Family
DX: U07.1 COVID-19 (principal); R50.9 Fever, unspecified; R09.89 Other specified symptoms and signs involving the circulatory and respiratory systems
CPT/HCPCS: 87070; 87880; 87804; U0003; C9803; 87635

== ENCOUNTER 2020-04-05 19:14 | Emergency (ER) | payer MEDICARE ==
[2020-04-05 19:37] LABS: ABSOLUTE EOSINOPHILS # (AUTO) 0.2 10^3/uL (0.0-0.6); ABSOLUTE LYMPHOCYTES (AUTO) 2.9 10^3/uL (0.5-4.7); ABSOLUTE MONOCYTES (AUTO) 0.5 10^3/uL (0.1-1.4); ABSOLUTE NEUT (AUTO) 4.3 10^3/uL (1.7-8.2); BASOPHILS % (AUTO) 0.6 % (0-2); HEMATOCRIT 43.3 % (37.9-51.0); HEMOGLOBIN 14.4 g/dL (13.5-17.0); LYMPHOCYTES % (AUTO) 36.6 % (13-45); MEAN CORPUSCULAR HEMOGLOBIN 29.8 pg (27.0-33.4); MEAN CORPUSCULAR HGB CONC 33.3 g/dL (32.0-36.0); MEAN CORPUSCULAR VOLUME 89 fl (80-97); MONOCYTES % (AUTO) 6.7 % (3-13); PLATELET COUNT 175 10^3/uL (150-450); RED BLOOD COUNT 4.85 10^6/uL (4.35-5.55); RED CELL DISTRIBUTION WIDTH 14.3 % (11.5-14.0); SEGMENTED NEUTROPHILS % (AUTO) 53.1 % (42-78); TOTAL CELLS COUNTED % (AUTO) 100 %
[2020-04-05] MEDS ORDERED: NORMAL SALINE 1000 ML 1,000 ML IV ONE (19:40)
[2020-04-05 20:07] LABS: ACETAMINOPHEN < 10 ug/mL (10-30); ALBUMIN 4.5 g/dL (3.5-5.0); ALCOHOL 159 mg/dL (NONE DETECTED); ALKALINE PHOSPHATASE 52 U/L (38-126); ANION GAP 13 (5-19); ASPARTATE AMINO TRANSFERASE 23 U/L (17-59); BILIRUBIN,DIRECT 0.1 mg/dL (0.0-0.4); BILIRUBIN,TOTAL 0.4 mg/dL (0.2-1.3); BLOOD UREA NITROGEN 12 mg/dL (7-20); CALCIUM 9.7 mg/dL (8.4-10.2); CARBON DIOXIDE 23 mmol/L (22-30); CHLORIDE 108 mmol/L (98-107); GLUCOSE 102 mg/dL (75-110); POTASSIUM 4.4 mmol/L (3.6-5.0); SALICYLATE 5.1 mg/dL (2.0-20.0); TOTAL PROTEIN 7.2 g/dL (6.3-8.2)
[2020-04-05 20:20] LABS: APPEARANCE,URINE CLEAR; BILIRUBIN,URINE NEGATIVE (NEGATIVE); COLOR,URINE COLORLESS; GLUCOSE, URINE NEGATIVE (NEGATIVE); KETONES,URINE NEGATIVE (NEGATIVE); LEUKOCYTE ESTERASE,URINE NEGATIVE (NEGATIVE); NITRITE,URINE NEGATIVE (NEGATIVE); PROTEIN,URINE NEGATIVE (NEGATIVE); URINE SPECIFIC GRAVITY 1.002; UROBILINOGEN,URINE NEGATIVE mg/dL (<2.0)
[2020-04-05] MEDS ORDERED: OXYCODONE HCL SR 10 MG TABLET PO ONE (20:24)
--- NOTE | 2020-04-05 20:28 | RADIOLOGY REPORT (SQ) ---
CLINICAL INDICATION: overdose. TECHNIQUE: A single portable AP view was obtained of the chest at 1949 hours. Additional repeat image COMPARISON: None. FINDINGS: The cardiomediastinal silhouette is normal. The lungs are grossly clear. No evidence of effusion or pneumothorax. The visualized bones are unremarkable. IMPRESSION: No evidence of active intrathoracic disease. Lungs grossly clear
[2020-04-05 20:35] LABS: URINE AMPHETAMINES SCREEN NEGATIVE; URINE BARBITURATES SCREEN NEGATIVE; URINE BENZODIAZEPINES SCREEN NEGATIVE; URINE COCAINE SCREEN NEGATIVE; URINE MARIJUANA (THC) SCREEN NEGATIVE; URINE METHADONE SCREEN NEGATIVE; URINE PHENCYCLIDINE SCREEN NEGATIVE
[2020-04-05 20:50] LABS: SALICYLATE 4.5 mg/dL (2.0-20.0)
[2020-04-05 20:54] LABS: ACETAMINOPHEN < 10 ug/mL (10-30)
[2020-04-05 22:33] LABS: SALICYLATE 3.5 mg/dL (2.0-20.0)
[2020-04-05 22:37] LABS: ACETAMINOPHEN < 10 ug/mL (10-30)
[2020-04-05] MEDS: KETAMINE HCL INJ 500 MG/10 ML VIAL IV ONE ×2 (22:47→22:53)
--- NOTE | 2020-04-05 23:04 | ER Document Report ---
ED General - General TRAVEL OUTSIDE OF THE [place] IN LAST 30 DAYS: No <LIZETH ACOSTA - Last Filed: 04/06/20 01:59> <KADEJUAN - Last Filed: 04/06/20 19:59> - General Chief Complaint: Overdose Stated Complaint: POSSIBLE OVERDOSE Primary Care Provider: PEACE NICHOLSON MD [Primary Care Provider] - Follow up as needed Notes: 64-year-old male history of chronic low back pain on chronic p.o. opioids and Klonopin presents with intentional overdose ~2 and half hours prior to arrival. Patient's partner told EMS that he was in front of her and took the entire bottle of Klonopin in a suicide attempt. Patient now denying that he took the whole bottle. Patient was apparently apneic with EMS and was bagged until his spontaneous respirations returned after giving ketamine. patient denies any injury, any acute change in chronic low back pain times years. History limited by intoxication. (LIZETH ACOSTA) - Related Data Allergies/Adverse Reactions: duloxetine HCl [From Cymbalta] Adverse Reaction (Mild, Verified 07/18/13 10:47) "DOESNT LIKE THE WAY IT MAKES HIM FEEL" gabapentin [Gabapentin] Adverse Reaction (Mild, Verified 07/18/13 10:47) "DOESNT LIKE THE WAY IT MAKES HIM FEEL" pregabalin [Pregabalin] Adverse Reaction (Mild, Verified 07/18/13 10:47) "DOESNT LIKE THE WAY IT MAKES HIM FEEL" Past Medical History - General Information source: Patient, Relative, Emergency Med Personnel, [facility] Records - Social History Smoking Status: Unknown if Ever Smoked Family History: None, Reviewed & Not Pertinent - Past Medical History Cardiac Medical History: Reports: Hx Hypertension Denies: Hx Coronary Artery Disease, Hx Heart Attack Pulmonary Medical History: Denies: Hx Asthma, Hx Bronchitis, Hx COPD, Hx Pneumonia Neurological Medical History: Denies: Hx Cerebrovascular Accident, Hx Seizures Renal/ Medical History: Denies: Hx Peritoneal Dialysis Musculoskeletal Medical History: Reports Hx Arthritis - generalized Psychiatric Medical History: Reports: Hx Anxiety, Hx Depression Past Surgical History: Reports: Hx Orthopedic Surgery - spinal fusion. Denies: Hx Pacemaker - Immunizations Hx Diphtheria, Pertussis, Tetanus Vaccination: Yes - 2010 <LIZETH ACOSTA - Last Filed: 04/06/20 01:59> Review of Systems - Review of Systems -: Yes ROS unobtainable due to patient's medical condition - Altered <LIZETH ACOSTA - Last Filed: 04/06/20 01:59> Physical Exam <LIZETH ACOSTA - Last Filed: 04/06/20 01:59> - Vital signs Vitals: Resp Pulse Ox 13 100 04/05/20 19:17 04/05/20 19:17 - Notes Notes: PHYSICAL EXAMINATION: GENERAL: Middle-age man mildly lethargic in no acute distress HEAD: Atraumatic, normocephalic. EYES: Pupils equal round and appropriate constriction, sclera anicteric, conjunctiva are normal. ENT: nares patent, moist mucous membranes. NECK/BACK: Normal range of motion, supple without lymphadenopathy, no midline spinal tenderness or deformity, no signs of trauma to the spine LUNGS: Breath sounds clear to auscultation bilaterally and equal. No wheezes rales or rhonchi. Normal respiratory rate and effort. HEART: Regular rate and rhythm without murmurs ABDOMEN: Soft, nontender, no guarding, no masses, no CVAT EXTREMITIES: Normal range of motion, no pitting or edema. No cyanosis. Small area of ecchymosis under left axilla with no deformity, no bony tenderness NEUROLOGICAL: Awake, mildly somnolent but easily arousable, moves all extremities spontaneously. SKIN: Warm, Dry, normal turgor (LIZETH ACOSTA) Course - Laboratory Result Diagrams: 04/05/20 19:23 04/05/20 19:23 <LIZETH ACOSTA - Last Filed: 04/06/20 01:59> - Laboratory Result Diagrams: 04/05/20 19:23 04/05/20 19:23 <JUAN BRAUN - Last Filed: 04/06/20 19:59> - Re-evaluation Re-evalutation: 04/05/20 23:07 Patient reported intentional overdose of Klonopin approximately 2 hours prior to arrival. Had respiratory depression after ketamine with EMS but normal respiratory status in ED, protecting airway, satting adequately. Patient initially mildly somnolent, but then awakened and became agitated, was complaining of back pain and was able to give history of back pain being chronic and unchanged and I verified patients I stop and give him his home dose of oxycodone, but then patient became gradually more agitated and was standing with unsteady gait and so I ordered ketamine in order to protect patient from fall risk while he metabolizes from his ingestion. RN spoke to poison control. Will clear medically after all labs result. Patient with mild ecchymosis on the left axilla consistent with patient being agitated and requiring restraint by EMS, no sign of trauma elsewhere, and patient sobering appropriately without concern for intracranial hemorrhage or other emergent traumatic injury at this time and patient was able to report symptoms when he became more alert and denied any pain other than unchanged back pain. Will continue to monitor closely pending sobriety and psych eval. 04/06/20 01:59 Pt currently clinically sober and medically cleared, but lacking insight into events preceding ED arrival so will keep on IVC. Requested pain meds for chronic back pain and "something to sleep." No other complaints. Turned over to Gabriel. (LIZETH ACOSTA) - Vital Signs Vital signs: Temp Pulse Resp BP Pulse Ox 97.3 F 77 18 123/72 100 04/06/20 18:59 04/06/20 18:59 04/06/20 18:59 04/06/20 18:59 04/06/20 18:59 - Laboratory Laboratory results interpreted by me: 04/05/20 04/05/20 04/05/20 19:23 19:23 19:23 RDW 14.3 H Chloride 108 H Acetaminophen < 10 L < 10 L 04/05/20 21:33 RDW Chloride Acetaminophen < 10 L - EKG Interpretation by Me Additional EKG results interpreted by me: 04/05/20 23:13 Sinus rhythm, no significant ST elevation or depression, no significant T wave abnormalities, QTc 458 (LIZETH ACOSTA) Discharge <LIZETH ACOSTA - Last Filed: 04/06/20 01:59> <JUAN BRAUN - Last Filed: 04/06/20 19:59> - Discharge Clinical Impression: Substance abuse Condition: Stable Disposition: HOME, SELF-CARE Additional Instructions: You have been evaluated by both medical and behavioral health teams for s ubstance abuse. You have been deemed appropriate for discharge. While in the emergency department you received the following services/or had access to: Medical screening and assessment, nursing services, dietary services, pharmacological services, one-on-one counseling and/or psychotherapy, enviro moental services, and continuous observation by a patient safety intern. You should continue your home medications as prescribed and follow up with your medication provider. You should take these medications as prescribed until you follow up with your outpatient medication provider unless you experience negative side effects then return to the emergency department. You are highly recommended to not drink alcohol while taking prescription medications. You have been given substance use and detox facility referral list for the community. CHRONIC ALCOHOLISM and ALCOHOL ABUSE: Your evaluation reveals evidence of chronic alcoholism, an addiction to alc ohol. The tendency to alcoholism may be inherited. Chronic use of alcohol weakens muscles, causes fatty deposits in the liver, damages the stomach, makes you more prone to infections, and can cause defects in unborn children. In the long run, brain atrophy and cirrhosis of the liver result. You are also at greater risk for certain types of cancer, such as cancer of the mouth, throat, stomach, and liver. Counselling services are available to help you. In-hospital treatment pro grams often help. Support groups such as Alcoholics Anonymous can be very useful in beating this addiction. Your physician can make a referral for you. As alcoholics often are prone to other addictions, you should discuss your use of any other medications with the doctor. FOLLOW-UP CARE: If you have been referred to a physician for follow-up care, call the physicians office for an appointment as you were instructed or within the next two days. If you experience worsening or a significant change in your symptoms, notify the physician immediately or return to the Emergency Department at any time for re-evaluation. Altered Mental Status An altered mental status is a change in the normal functioning of the brain. This alteration of function can range from minor decreased brain function with some forgetfulness and confusion to complete loss of consciousness and coma. There are many possible causes of an altered mental status and include brain injuries such as trauma or strokes, problems with oxygen supply to the brain, fever and infections of the brain and/or elsewhere in the body, metabolic abnormalities such as low or high blood sugar, overdoses or excessive medication ingestion, and mental and psychiatric illnesses. Sometimes the altered mental status resolves and a definite cause is not determined. If a cause for your altered mental status was found, it has likely been corrected. Your evaluation has not shown any condition that requires that you be admitted to the hospital. It is believed that you are safe to leave and return to your home. If you have a return of your symptoms, you should return for re-evaluation. Referrals: PEACE NICHOLSON MD [Primary Care Provider] - Follow up as needed
--- NOTE | 2020-04-06 00:30 | EKG REPORT ---
SEVERITY:- ABNORMAL ECG - SINUS RHYTHM NONSPECIFIC T ABNORMALITIES, ANT-LAT LEADS : Confirmed by: Jenny Sherman 06-Apr-2020 00:29:36
--- NOTE | 2020-04-06 00:30 | EKG REPORT ---
SEVERITY:- NORMAL ECG - SINUS RHYTHM : Confirmed by: Jenny Sherman 06-Apr-2020 00:29:48
[2020-04-06] MEDS ORDERED: IBUPROFEN 400 MG TABLET PO ONE (01:30)
[2020-04-06] MEDS ORDERED: DIPHENHYDRAMINE HCL 25 MG CAPSULE PO ONE (01:30)
--- NOTE | 2020-04-06 09:48 | ER Document Report ---
Doctor's Note Notes: 04/06/20 09:47 Patient restless at bedside stating that he wants to be discharged. Patient advised of 24-hour hold status. Patient is requesting his chronic pain medication that he takes for his chronic back pain. Medications have been ordered at this time. PHYSICAL EXAMINATION: GENERAL: Well-appearing, restless at bedside. HEAD: Atraumatic, normocephalic. EYES: sclera anicteric, conjunctiva are normal. ENT: nares patent. Moist mucous membranes. NECK: Normal range of motion, supple without lymphadenopathy LUNGS: CTAB and equal. No wheezes rales or rhonchi. HEART: Regular rate and rhythm without murmurs EXTREMITIES: Normal range of motion, no pitting edema. No cyanosis. BACK: Lower lumbar tenderness NEUROLOGICAL: Cranial nerves grossly intact. Normal speech. Normal gait. PSYCH: Anxious, restless at bedside SKIN: Warm, Dry, normal turgor, no rashes or lesions noted 04/06/20 19:53 Behavioral health team states that patient no longer meets IVC criteria at this time. Patient denies any SI or HI. Patient states he was upset with the election and does acknowledge mixing alcohol with his chronic narcotic pain medication. Patient IVC will be rescinded per behavioral health team members. Patient educated on importance of not mixing alcohol with narcotic pain medication to avoid potentially lethal interaction.
[2020-04-06] MEDS: OXYCODONE HCL IR 5 MG TABLET PO PRN ×2 (09:50→17:53)
[2020-04-06] MEDS ORDERED: METOPROLOL TARTRATE 25 MG TABLET PO ONE (15:11)
--- NOTE | 2020-04-06 20:12 | PSYCHOLOGICAL NOTE ---
Psych Note - Psych Note Date seen by psych provider: 04/06/20 Time seen by psych provider: 12:05 Psych Note: [id number] Reason for Consult: SI, psychosis, behavioral, alcohol abuse Consent Permissions: Li Perla, , (h) and [phone] (c) Patient is a 64 year male old who presented to the [facility] ED today due to alcohol use. Patient reports he was unsure how he got to the ED and states, I dont know. I was probably drinking. He then asked, Who sent me here? Patient denies drug use. Patient denies suicidal ideations, plan, or intent. Denies homicidal ideations. Reports the past week had him p off related to the election. 1939: Checked back in with patient. No longer presenting with altered mental status. Patient denied intentional overdose or overtaking medications. Admits to drinking alcohol while taking his medications. Patient admits he should not have mixed his medications with alcohol. Patient continues to deny suicidal ideations. Attempted patients , Li Perla, for collateral at 1900. Was unable to reach her at this time. Attempted home and cell phone numbers. Patient was alert and oriented to self, person, place, time and situation. Mood was euthymic with congruent affect. He denied current SI/HI. Patient did not appear to be responding to internal stimuli as evidenced by fair eye contact and answering questions appropriately when addressed. Thought processes are linear and organized. Conversational speech was within normal limits for rate, tone and prosody. Intellectual abilities are estimated to be average. Insight, judgment and impulse control were fair as evidenced by admitting he should not have mixed his medications with alcohol. Clinical Presentation: substance abuse IVC Criteria per [place] GS 122C Dangerous to others Within the relevant past the individual No has inflicted or attempted to inflict or threatened to inflict serious bodily harm on another AND No that there is a reasonable probability that this conduct will be repeated. OR No has acted in such a way as to create a substantial risk of serious bodily harm to another AND No that there is a reasonable probability that this conduct will be repeated. OR No has engaged in extreme destruction of property AND NO that there is a reasonable probability that this conduct will be repeated. Previous episodes of dangerousness to others, when applicable, may be considered when determining reasonable probability of future dangerous conduct. Clear, cogent, and convincing evidence that an individual has committed a homicide in the relevant past is prima facie evidence of dangerousness to others. Dangerous to self Within the relevant past the individual has done any of the following: acted in such a way as to show ALL of the following: No The individual would be unable without care, supervision, and the continued assistance of others not otherwise available, to exercise self- control, judgment, and discretion in the conduct of the individual's daily responsibilities and social relations or to satisfy the individual's need for nourishment, personal or medical care, intermediate, or self-protection and safety. AND No There is a reasonable probability of the individual suffering serious physical debilitation within the near future unless adequate treatment is given. A showing of behavior that is grossly irrational, of actions that the individual is unable to control, of behavior that is grossly inappropriate to the situation, or of other evidence of severely impaired insight and judgment shall create a prima facie inference that the individual is unable to care for himself or herself. OR No has attempted suicide or threatened suicide No patient was taking medications while drinking; denies plan or intent to end his life AND No that there is a reasonable probability of suicide unless adequate treatment is given OR No has mutilated himself or herself or attempted to mutilate himself or herself AND No that there is a reasonable probability of serious self-mutilation unless adequate treatment is given. NOTE: Previous episodes of dangerousness to self, when applicable, may be considered when determining reasonable probability of physical debilitation, suicide, or self-mutilation. Impression\plan: Patient is being discharged to home. He is recommended to not drink alcohol while taking prescription medications. He was given referral list for detox and substance use facilities in the community. He is recommended to follow up with substance use treatment. Dr. Rajput was consulted to care management of this patient; attending physicians in agreement with recommendations and disposition.
[2020-04-06 20:46] VITALS: BP 107/64
== END 2020-04-06 21:09 | disposition home or self-care (01) ==
LOC: ER 19:14
DX: F19.10 Other psychoactive substance abuse, uncomplicated (principal); T42.4X2A Poisoning by benzodiazepines, intentional self-harm, initial encounter; T40.2X2A Poisoning by other opioids, intentional self-harm, initial encounter; R06.81 Apnea, not elsewhere classified; I10 Essential (primary) hypertension; G89.29 Other chronic pain; M54.9 Dorsalgia, unspecified; Z98.1 Arthrodesis status
CPT/HCPCS: 93005; 99285; 96361; 96374; 36415; 80307 ×4; 85025; 80053; 81001; 71045; 93010; J3490; A9270 ×3; J7030